=== PATIENT | female | born 1985 | race Caucasian/White ===

== ENCOUNTER 2017-08-19 11:52 | Emergency (ER) | payer MEDICAID, OTHER ==
[~2017-08-19] VITALS: Ht 165.1 cm; Wt 80.0 kg
[~2017-08-19 11:52] MED LIST: BCP; NAPR220T95 OR; TRAM50 PO
[2017-08-19 11:54] VITALS: BP 164/89; PULSE 102; RESP 18; TEMP 98.3; O2SAT 99
[2017-08-19] MEDS ORDERED: SODIUM CHLOR 0.9% 1000 ML INJ 1,000 ML IV SCH (13:44)
--- NOTE | 2017-08-19 13:44 | PD ---
HPI Chief Complaint: [place] Problem/Complaint Time Seen by Provider: 13:43 Travel History International Travel<30 days: No Contact w/Intl Traveler<30days: No Traveled to known affect area: No History of Present Illness HPI 32-year-old female presents to emergency Department with complaint of vaginal bleeding that started on July 26. She thought she had started her period and then onset tumor night she had copious amounts of vaginal bleeding with clotting and abdominal cramping. Her vaginal bleeding decreased and then again today she had an explosion of jellylike blood and clots from her vagina. Prior to July 26 bleeding, her last menstrual period was June 12. Unknown if Denies abnormal vaginal discharge, odor. Reports pelvic cramping and describes as pressure. Reports nausea and vomiting every morning, especially after brushing teeth. Denies fevers, dysuria. Denies chest pain, shortness of breath, dizziness, lightheadedness. Symptoms are moderate in severity. Denies risk of STD. Reports being in a monogamous relationship. Does not take control. Has been 5 times with one live and 4 elective abortions. History of polycystic ovaries and kidney stones. Allergies to penicillin, hydrocodone, acetaminophen. No established primary care provider or artificial flower maker. Has no other medical complaints. No other modifying factors or associated signs and symptoms. PFSH Past Medical History Cancer: Yes (CERVICAL) Diminished Hearing: No Kidney Stones: Yes (2006) Neurologic: Yes (VERTIGO) Reproductive: Yes (ENDOMETRIOSIS) Immunizations Current: Yes ?: Unknown : 3 Para: 1 Miscarriage: 1 : 4 Ovarian Cysts: Yes (PRECANCEROUS LESIONS, 2004) Past Surgical History Abdominal Surgery: Yes (LAPAROSCOPY) Gynecologic Surgery: Yes (LAPROSCOPIC SURGERY PRE CANCEROUS CELLS) Other Surgery: Yes (2005--LAPAROSCOPY) Social History Alcohol Use: Yes (OCCAS) Tobacco Use: Yes (1 PPD SINCE 12 YOA) Substance Use: Yes (MARIJUANA) Allergies-Medications (Allergen,Severity, Reaction): Coded Allergies: penicillin G (Unverified Allergy, Severe, "FACIAL SWELLING", 08/19/17) acetaminophen (Unverified Adverse Reaction, Severe, ITCHING, NAUSEA, ) hydrocodone (Unverified Adverse Reaction, Severe, ITCHING, NAUSEA, 08/19/17 ) Reported Meds & Prescriptions Reported Meds & Active Scripts Active No Active Prescriptions or Reported Medications Review of Systems Except as stated in HPI: all other systems reviewed are Neg Physical Exam Narrative GENERAL: Well-nourished, well-developed female patient, in no acute distress; afebrile, nontoxic-appearing SKIN: Warm and dry. No rash. HEAD: Atraumatic. Normocephalic. EYES: Pupils equal and round. No scleral icterus. No injection or drainage. ENT: Mucosa pink and moist. NECK: Trachea midline. CARDIOVASCULAR: Regular rate and rhythm. No murmur appreciated. RESPIRATORY: No accessory muscle use. Clear to auscultation. Breath sounds equal bilaterally. GASTROINTESTINAL: Abdomen soft, non-tender, nondistended. Tenderness on palpation to pelvic region. Hepatic and splenic margins not palpable. Bowel sounds are active 4 quadrants. Bladder nontender and nondistended. BIMANUAL EXAM: Cervical os is closed. Vaginal blood noted. MUSCULOSKELETAL: No obvious deformities. No clubbing. No cyanosis. No edema. BACK: No CVA tenderness NEUROLOGICAL: Awake and alert. Oriented 3. No obvious cranial nerve deficits. Motor grossly within normal limits. Normal speech. Moves all extremities. 5/5 strength to all extremities. PSYCHIATRIC: Appropriate mood and affect; insight and judgment normal. Data Data Last Documented VS Vital Signs Date Time Temp Pulse Resp B/P (MAP) Pulse Ox O2 Delivery O2 Flow Rate FiO2 08/19/17 16:50 83 20 137/70 (92) 99 Room Air 08/19/17 11:54 98.3 Orders Orders Complete Blood Count With Diff (08/19/17 13:44) Urinalysis - C+S If Indicated (08/19/17 13:44) Iv Access Insert/Monitor (08/19/17 13:44) Sodium Chloride 0.9% Flush (Ns Flush) (08/19/17 13:45) Ed Urine Pregnancytest Poc (08/19/17 13:44) Ketorolac Inj (Toradol Inj) (08/19/17 13:45) Sodium Chlor 0.9% 1000 Ml Inj (Ns 1000 M (08/19/17 13:44) Beta Hcg (Quant/Titer) (08/19/17 13:52) Basic Metabolic Panel (Bmp) (08/19/17 13:52) Urine Culture (08/19/17 14:15) Us Pelvis (Ques Pr/Ect)W Trans (08/19/17 ) Labs Laboratory Tests Test 08/19/17 14:13 08/19/17 14:15 White Blood Count 18.9 TH/MM3 Red Blood Count 3.93 MIL/MM3 Hemoglobin 13.1 GM/DL Hematocrit 38.4 % Mean Corpuscular Volume 97.7 FL Mean Corpuscular Hemoglobin 33.2 PG Mean Corpuscular Hemoglobin Concent 34.0 % Red Cell Distribution Width 12.1 % Platelet Count 259 TH/MM3 Mean Platelet Volume 8.8 FL Neutrophils (%) (Auto) 75.9 % Lymphocytes (%) (Auto) 13.9 % Monocytes (%) (Auto) 8.3 % Eosinophils (%) (Auto) 1.6 % Basophils (%) (Auto) 0.3 % Neutrophils # (Auto) 14.4 TH/MM3 Lymphocytes # (Auto) 2.6 TH/MM3 Monocytes # (Auto) 1.6 TH/MM3 Eosinophils # (Auto) 0.3 TH/MM3 Basophils # (Auto) 0.1 TH/MM3 CBC Comment AUTO DIFF Differential Comment AUTO DIFF CONFIRMED Blood Urea Nitrogen 9 MG/DL Creatinine 0.65 MG/DL Random Glucose 81 MG/DL Calcium Level 9.2 MG/DL Sodium Level 135 MEQ/L Potassium Level 4.5 MEQ/L Chloride Level 106 MEQ/L Carbon Dioxide Level 21.1 MEQ/L Anion Gap 8 MEQ/L Estimat Glomerular Filtration Rate 105 ML/MIN Human Chorionic Gonadotropin, Quant 85133 MIU/ML Urine Color LIGHT-YELLOW Urine Turbidity CLEAR Urine pH 5.5 Urine Specific Elizabeth 1.007 Urine Protein NEG mg/dL Urine Glucose (UA) NEG mg/dL Urine Ketones NEG mg/dL Urine Occult Blood MOD Urine Nitrite NEG Urine Bilirubin NEG Urine Urobilinogen LESS THAN 2.0 MG/DL Urine Leukocyte Esterase NEG Urine RBC 2 /hpf Urine WBC 1 /hpf Urine Squamous Epithelial Cells 1 /hpf Urine Bacteria MOD /hpf Microscopic Urinalysis Comment CULTURE INDICATED MDM Medical Decision Making Medical Screen Exam Complete: Yes Emergency Medical Condition: Yes Medical Record Reviewed: Yes Differential Diagnosis , threatened miscarriage, miscarriage, dysmenorrhea, menorrhagia Narrative Course 32-year-old female with vaginal bleeding that started July 26. UPT in the ER is positive. Last menses is reported June 12. A4. I reviewed medical record and Blood type is A+. IV site obtained. CBC, BMP, beta hCG, urinalysis , pelvic and transvaginal ultrasound ordered. Toradol and normal saline bolus ordered. 1521: WBC 18.9. Beta hCG 27182. BMP unremarkable. Urinalysis without signs of infection. 1639: Pelvic ultrasound concluded: Single intrauterine gestation corresponding to 9 weeks 4 days; cardiac activity is present with heart rate of 147 bpm; Probable small 2.5 x 1.2 x 1.6 cm subchorionic hemorrhage. Instructed patient to return to the emergency department or follow-up with naturopathic oncology provider for hCG recheck in 2 days. Instructed patient to follow up with naturopathic oncology provider. Instructed patient to follow up with primary care provider. Patient verbalizes understanding and agreement with treatment plan. Patient is medically cleared and stable for discharge. Discussed reasons to return to the emergency department. Patient agrees with treatment plan. The patients vital signs are stable and the patient is stable for outpatient follow-up and treatment. Patient discharged home, stable and in no acute distress. Diagnosis Primary Impression: Intrauterine Additional Impression: Threatened miscarriage Referrals: [facility] Dig[facility] Helper Primary Care Physician Patient Instructions: First Trimester (ED), General Instructions, Threatened Miscarriage (ED) Additional Instructions: Follow-up with naturopathic oncology provider or return to emergency department in 48 hours for beta hCG recheck Follow-up with primary care provider Follow-up with naturopathic oncology provider Return to the emergency department immediately if worsening of symptoms Med/Other Pt SpecificInfo: No Meds Exist/No RX given Scripts No Active Prescriptions or Reported Meds Disposition: 01 DISCHARGE HOME Condition: Stable Lupe Elmore Aug 19, 2017 13:44
[2017-08-19] MEDS ORDERED: KETOROLAC TROMETHAMINE 30 MG/ML (IVP) VIAL IV PUSH ONE (13:45)
[2017-08-19] MEDS ORDERED: SODIUM CHLORIDE 0.9% FLUSH 10 ML FLUSH IVF PRN (13:45)
[2017-08-19 14:37] LABS: AUTOMATED NEUTROPHIL # 14.4 TH/MM3 (1.8-7.7); BASOPHIL # 0.1 TH/MM3 (0-0.2); BASOPHIL % 0.3 % (0.0-2.0); EOSINOPHIL # 0.3 TH/MM3 (0-0.4); EOSINOPHIL % 1.6 % (0.0-4.0); HEMATOCRIT 38.4 % (35.0-46.0); HEMO FLAGS AUTO DIFF; LYMPH % 13.9 % (9.0-44.0); LYMPHOCYTE # 2.6 TH/MM3 (1.0-4.8); MEAN CELL VOLUME 97.7 FL (80.0-100.0); MEAN CORPUSCULAR HEMOGLOBIN 33.2 PG (27.0-34.0); MONO % 8.3 % (0.0-8.0); NEUT % 75.9 % (16.0-70.0); PLATELET COUNT 259 TH/MM3 (150-450); RED BLOOD COUNT 3.93 MIL/MM3 (4.00-5.30); RED CELL DISTRIBUTION WIDTH 12.1 % (11.6-17.2); WHITE BLOOD COUNT 18.9 TH/MM3 (4.0-11.0)
[2017-08-19 15:09] LABS: BACTERIA, URINE MOD /hpf; BLOOD, URINE MOD (NEG); COMMENT (UR) CULTURE INDICATED; CULTURE IF INDICATED CULTURE INDICATED; GLUCOSE,URINE NEG (NEG); KETONE, URINE NEG (NEG); NITRITE,URINE NEG (NEG); PH, URINE 5.5 (5.0-8.5); SQUAMOUS EPITHELIAL CELL URINE 1 /hpf (0-5); URINE COLOR LIGHT-YELLOW (YELLW/STRAW)
[2017-08-19 15:16] LABS: BICARBONATE 21.1 MEQ/L (21.0-32.0); POTASSIUM 4.5 MEQ/L (3.5-5.1)
[2017-08-19 15:38] LABS: SCAN/DIFF AUTO DIFF CONFIRMED
--- NOTE | 2017-08-19 16:20 | RADRPT ---
EXAM DATE/TIME: 08/19/2017 15:08 [place] COMPARISON: No previous studies available for comparison. INDICATIONS : Bleeding. LAB(S): Beta-hC MEDICAL HISTORY : . Renal calculi. Carcinoma, cervical. Vertigo. Endometriosis. Precancerous lesions on ovar ies. Substance use. SURGICAL HISTORY : Laproscopic surgery pre cancerous cells, ovaries. ENCOUNTER: Initial ACUITY: 2 weeks PAIN SCORE: 5/10 LOCATION: Bilateral pelvis MEASUREMENTS: UTERUS: 11.7 x 8.3 x 6.9 cm ENDOMETRIAL STRIPE: >20 mm RIGHT OVARY: 3.7 x 2.1 x 2.4 cm LEFT OVARY: 2.5 x 1.7 x 1.4 cm FREE FLUID: No CROWN RUMP LENGTH: 2.8 = 9 WKS 4 DAYS FHR: 147 BPM FINDINGS: UTERUS: There is a single intrauterine gestational sac with a pole present. cardiac activity is n oted at 147 bpm. [place]-rump length corresponds to 9 weeks 4 days. There is likely a small mid subchor ionic hemorrhage measuring 2.5 x 1.2 x 1.6 cm. Small myometrial calcifications. RIGHT OVARY: Ovary contains no mass or significant cystic lesion. LEFT OVARY: Ovary contains no mass or significant cystic lesion. MISCELLANEOUS: No free fluid. CONCLUSION: 1. Single intrauterine gestation corresponding to 9 weeks 4 days. cardiac activity is present w ith heart rate of 147 bpm. 2. Probable small 2.5 x 1.2 x 1.6 cm subchorionic hemorrhage. Jarod Soni MD on August 19, 2017 at 16:15 Board Certified Radiologist. This report was verified electronically.
[2017-08-19 16:50] VITALS: BP 137/70; PULSE 83; RESP 20; O2SAT 99
== END 2017-08-19 18:06 | disposition home or self-care (01) ==
LOC: NEPD 11:52
DX: O20.0 Threatened abortion (principal); Z3A.09 9 weeks gestation of pregnancy; O23.41 Unspecified infection of urinary tract in pregnancy, first trimester; B96.1 Klebsiella pneumoniae [K. pneumoniae] as the cause of diseases classified elsewhere
CPT/HCPCS: 76700; 76817; 80048; 81001; 84702; 84703; 85025; 87077; 87086; 87186; 96374; 99285; J1885; J7030

== ENCOUNTER 2017-08-23 10:56 | Emergency (ER) | payer OTHER, MEDICAID ==
[~2017-08-23] VITALS: Ht 165.1 cm; Wt 75.0 kg
[2017-08-23 10:58] VITALS: BP 143/71; PULSE 115; RESP 18; TEMP 98.7; O2SAT 100
--- NOTE | 2017-08-23 11:39 | PD ---
HPI Chief Complaint: Related Problem Time Seen by Provider: 11:25 Travel History International Travel<30 days: No Contact w/Intl Traveler<30days: No Traveled to known affect area: No History of Present Illness HPI This is a 32-year-old currently 10 weeks based on ultrasound on August 19. She presents after being told to return for repeat beta hCG. The patient was seen here in August 19 for evaluation of vaginal bleeding. She was found to have an intrauterine that was 9 weeks 4 days with a subchorionic hemorrhage, heart rate of 147. She was instructed to return in 2 days for repeat bhcg. Her blood type is O+. She reports currently just mild spotting as well as some mild pelvic cramping. She also endorses some bruising and soreness to left lower quadrant after being kicked by her horse yesterday. Symptoms are mild, aggravated by palpation. She denies any dysuria , flank pain, fevers or chills. She has had some nausea. She has no other complaints. PFSH Past Medical History Cancer: Yes (CERVICAL) Diminished Hearing: No Kidney Stones: Yes (2006) Neurologic: Yes (VERTIGO) Reproductive: Yes (ENDOMETRIOSIS) Immunizations Current: Yes ?: LMP: 07/2017 : 3 Para: 1 Miscarriage: 1 : 4 Ovarian Cysts: Yes (PRECANCEROUS LESIONS, 2004) Past Surgical History Abdominal Surgery: Yes (LAPAROSCOPY) Gynecologic Surgery: Yes (LAPROSCOPIC SURGERY PRE CANCEROUS CELLS) Other Surgery: Yes (2005--LAPAROSCOPY) Social History Alcohol Use: Yes (OCCAS) Tobacco Use: Yes (1 PPD SINCE 12 YOA) Substance Use: Yes (MARIJUANA EVERY DAY) Allergies-Medications (Allergen,Severity, Reaction): Coded Allergies: penicillin G (Verified Allergy, Severe, "FACIAL SWELLING", 08/23/17) acetaminophen (Verified Adverse Reaction, Severe, ITCHING, NAUSEA, 08/23/17 ) hydrocodone (Verified Adverse Reaction, Severe, ITCHING, NAUSEA, 08/23/17) Reported Meds & Prescriptions Reported Meds & Active Scripts Active Diclegis (Doxylamine-Pyridoxine) 10-10 Mg Tab 2 Tab PO BEDTIME Keflex (Cephalexin) 500 Mg Cap 500 Mg PO Q12H 7 Days Review of Systems Except as stated in HPI: all other systems reviewed are Neg Physical Exam Narrative GENERAL: Well-developed well-nourished female in no acute distress. SKIN: Warm and dry. There is a quarter-sized area of ecchymosis to the left lower quadrant which is mildly tender to palpation. No guarding. HEAD: Atraumatic. Normocephalic. EYES: Pupils equal and round. No scleral icterus. No injection or drainage. ENT: No nasal bleeding or discharge. Mucous membranes pink and moist. NECK: Trachea midline. No JVD. CARDIOVASCULAR: Regular rate and rhythm. No murmur appreciated. RESPIRATORY: No accessory muscle use. Clear to auscultation. Breath sounds equal bilaterally. GASTROINTESTINAL: Abdomen soft, mild left lower quadrant tenderness to palpation. MUSCULOSKELETAL: No obvious deformities. No edema. NEUROLOGICAL: Awake and alert. No obvious cranial nerve deficits. Motor grossly within normal limits. Normal speech. Data Data Last Documented VS Vital Signs Date Time Temp Pulse Resp B/P (MAP) Pulse Ox O2 Delivery O2 Flow Rate FiO2 08/23/17 12:15 103 17 138/72 (94) 08/23/17 10:58 98.7 100 Room Air Orders Orders Beta Hcg (Quant/Titer) (08/23/17 11:26) Ed Poc Ultrasound (08/23/17 ) Labs Laboratory Tests Test 08/23/17 11:40 Human Chorionic Gonadotropin, Quant [id number] MIU/ML MDM Medical Decision Making Medical Screen Exam Complete: Yes Emergency Medical Condition: Yes Medical Record Reviewed: Yes Differential Diagnosis Intrauterine , threatened miscarriage, incomplete , ectopic , abdominal wall contusion, intra-abdominal hemorrhaging Narrative Course Bedside ultrasound today reveals an intrauterine with heart rate of 140. Review of her previous records reveals that he urinalysis was sent for culture and this has grown out Klebsiella. The patient has a listed allergy to penicillin but she is taking Keflex in the past and therefore upon discharge she will be given a prescription for Keflex. [place] [address], which although this is [place] [address] on 08/19 in that the patient is 10 weeks this is not unexpected. Reassuringly the patient has a normal-appearing intrauterine with a heart rate of 140. Dr. Gonzalez performed bedside FAST exam given the blunt trauma from being kicked from a horse yesterday and it was unremarkable. At this point in time the patient is stable for discharge, she'll be given a prescription for Diclegis for her nausea and vomiting. Procedures Procedure Narrative Emergency Department Pelvic ultrasound was performed with patient consent. The curvilinear probe was used in the transverse and sagittal views within the suprapubic region revealing single intrauterine . heart rate was 140. Diagnosis Primary Impression: Intrauterine Additional Impression: Urinary tract infection Qualified Codes: N39.0 - Urinary tract infection, site not specified Referrals: Piano Regulator Additional Instructions: Establish care with an senior project engineer. Medication as prescribed. Stable hydrated well-nourished. vitamins. Return for any acutely new or worsening symptoms. Med/Other Pt SpecificInfo: Prescription(s) given Scripts Doxylamine-Pyridoxine (Diclegis) 10-10 Mg Tab 2 TAB PO BEDTIME, #20 Prov: Tere Gonzalez DO 08/23/17 Cephalexin (Keflex) 500 Mg Cap 500 MG PO Q12H for Infection for 7 Days, #14 CAP 0 Refills Prov: Tere Gonzalez DO 08/23/17 Disposition: 01 DISCHARGE HOME Condition: Stable Nathen Martino Aug 23, 2017 11:39
[2017-08-23 12:15] VITALS: BP 138/72; PULSE 103; RESP 17
[2017-08-23] MEDS ORDERED: CEPH-460 PO (12:32)
[2017-08-23 12:36] LABS: BETA HCG QUANT 33985 MIU/ML (0-5)
--- NOTE | 2017-08-23 12:43 | PD ---
Physical Exam Narrative I, Dr. Gonzalez, have reviewed the advance practice practitioner's documentation and am in agreement, met with the patient face to face, made the diagnosis, and the medical decision making was done by me. *My assessment and Findings: Intraabdominal hemorrhage vs. contusion vs. spontaneous vs. hemorrhage from subchorionic hemorrhage 32yo F was instructed to return to the ED for repeat bHCG. Bedside US showed IUP with movement and FHR at 140bpm. Pt also mentioned she was kicked by a horse yesterday. Pt has a small ecchymoses in left pubic region that is tender to palpation. Bedside FAST negative [place]. [place] [address] and it is down from before but can be normal at this stage of . Pt is well appearing and abdominal exam is benign. Pt to follow up with OBGYN as outpatient. Return precautions given. Data Data Last Documented VS Vital Signs Date Time Temp Pulse Resp B/P (MAP) Pulse Ox O2 Delivery O2 Flow Rate FiO2 08/23/17 13:35 102 18 138/84 (102) 100 08/23/17 10:58 98.7 Room Air Orders Orders Beta Hcg (Quant/Titer) (08/23/17 11:26) Ed Poc Ultrasound (08/23/17 ) Labs Laboratory Tests Test 08/23/17 11:40 Human Chorionic Gonadotropin, Quant 85045 MIU/ML MDM Supervised Visit with [facility]: Yes Procedures Procedure Narrative Emergency department FAST was performed with patient consent. The curvilinear probe was used in the right upper quadrant/Morison's pouch, suprapubic, left upper quadrant/spleenorenal space, epigastric, subxyphoid. There was no evidence of peritoneal free fluid, or pericardial effusion. Diagnosis Primary Impression: Vaginal bleeding in Scripts Doxylamine-Pyridoxine (Diclegis) 10-10 Mg Tab 2 TAB PO BEDTIME, #20 Prov: Tere Gonzalez DO 08/23/17 Cephalexin (Keflex) 500 Mg Cap 500 MG PO Q12H for Infection for 7 Days, #14 CAP 0 Refills Prov: Tere Gonzalez DO 08/23/17 Tere Gonzalez DO Aug 23, 2017 12:43
[2017-08-23] MEDS ORDERED: DOXY10TA PO (13:09)
[2017-08-23 13:35] VITALS: BP 138/84
== END 2017-08-23 13:51 | disposition home or self-care (01) ==
LOC: NEPD 10:56
DX: O23.41 Unspecified infection of urinary tract in pregnancy, first trimester (principal); R10.2 Pelvic and perineal pain; Z3A.10 10 weeks gestation of pregnancy
CPT/HCPCS: 84702; 99284